=== PATIENT | female | born 1970 | race Caucasian/White ===

== ENCOUNTER 2017-10-08 20:18 | Inpatient (IN) | payer SELFPAY ==
[~2017-10-08] VITALS: Ht 167.6 cm; Wt 110.2 kg
--- NOTE | 2017-10-08 20:25 | Emergency Room Report ---
History of Present Illness General Chief Complaint: To Be Triaged Source: Patient Present Illness HPI Patient presents with complaints of shortness of breath and wheezing also reports chest tightness and left upper chest pain with radiation to the left arm This started just prior to arrival Denies any vomiting or diarrhea denies any back or flank pain Denies any pleurisy Pain as a heaviness as well 3 out of 10 Allergies: Coded Allergies: No Known Allergies (Unverified , 10/08/17) Patient History Past Medical History: see triage record Pertinent Family History: none Reviewed Nursing Documentation: PMH: Agreed; PSxH: Agreed Review of Systems All Other Systems: negative except mentioned in HPI Physical Exam Sp02 EP Interpretation: reviewed, normal - 99% on room air which is normal General Appearance: well appearing, no apparent distress Head: normocephalic, atraumatic Eyes: bilateral eye PERRL, bilateral eye EOMI ENT: hearing grossly normal, normal pharynx, TMs + canals normal, uvula midline Neck: full range of motion, supple, no meningismus, no bony tend Respiratory: no respiratory distress, no retraction, no accessory muscle use, wheezing - Bilaterally Cardiovascular #1: normal peripheral pulses, regular rate, rhythm, no edema, no gallop, no JVD, no murmur Gastrointestinal: normal bowel sounds, non tender, soft, no mass, no organomegaly, non-distended, no guarding, no hernia, no pulsatile mass, no rebound Genitourinary: no CVA tenderness Musculoskeletal: normal inspection Neurologic: oriented x3, responsive, instrument tester III-XII nml as tested, motor strength/ tone normal, sensory intact Psychiatric: mood/affect normal Skin: normal color, no rash, warm/dry, palpation normal Lymphatic: normal inspection, no adenopathy Medical Decision Making Diagnostic Impression: Primary Impression: ACS (acute coronary syndrome) ER Course Patient is a fairly complex patient with multiple differential to consideration including but not limited to cardiac cardiopulmonary and vascular emergencies Patient's baseline blood work are appropriate Given the patient's description of pain location Consideration for ACS is made and patient admitted for further care Labs Test 10/08/17 20:30 10/08/17 20:33 10/08/17 20:39 10/09/17 05:27 White Blood Count 10.9 K/UL (4.8-10.8) 9.7 K/UL (4.8-10.8) Red Blood Count 4.88 M/UL (4.20-5.40) 4.49 M/UL (4.20-5.40) Hemoglobin 12.2 G/DL (12.0-16.0) 11.0 G/DL (12.0-16.0) Hematocrit 38.2 % (37.0-47.0) 35.7 % (37.0-47.0) Mean Corpuscular Volume 78 FL (80-99) 80 FL (80-99) Mean Corpuscular Hemoglobin 25.0 PG (27.0-31.0) 24.6 PG (27.0-31.0) Mean Corpuscular Hemoglobin Concent 31.8 G/DL (32.0-36.0) 30.8 G/DL (32.0-36.0) Red Cell Distribution Width 14.9 % (11.6-14.8) 14.7 % (11.6-14.8) Platelet Count 212 K/UL (150-450) 211 K/UL (150-450) Mean Platelet Volume 7.3 FL (6.5-10.1) 8.0 FL (6.5-10.1) Neutrophils (%) (Auto) 59.1 % (45.0-75.0) 53.8 % (45.0-75.0) Lymphocytes (%) (Auto) 32.6 % (20.0-45.0) 37.5 % (20.0-45.0) Monocytes (%) (Auto) 5.4 % (1.0-10.0) 5.8 % (1.0-10.0) Eosinophils (%) (Auto) 1.9 % (0.0-3.0) 1.9 % (0.0-3.0) Basophils (%) (Auto) 1.1 % (0.0-2.0) 1.0 % (0.0-2.0) Urine Opiates Screen Negative (NEGATIVE) Urine Barbiturates Screen Negative (NEGATIVE) Phencyclidine (PCP) Screen Negative (NEGATIVE) Urine Amphetamines Screen Negative (NEGATIVE) Urine Benzodiazepines Screen Negative (NEGATIVE) Urine Cocaine Screen Negative (NEGATIVE) Urine Marijuana (THC) Screen Negative (NEGATIVE) D-Dimer 0.19 mg/L FEU (0.00-0.49) Sodium Level 141 MMOL/L (136-145) Potassium Level 3.9 MMOL/L (3.5-5.1) Chloride Level 105 MMOL/L (98-107) Carbon Dioxide Level 26 MMOL/L (21-32) Anion Gap 10 mmol/L (5-15) Blood Urea Nitrogen 15 mg/dL (7-18) Creatinine 0.8 MG/DL (0.55-1.30) Estimat Glomerular Filtration Rate > 60 mL/min (>60) Glucose Level 127 MG/DL (74-106) Calcium Level 8.6 MG/DL (8.5-10.1) Total Bilirubin 0.2 MG/DL (0.2-1.0) Aspartate Amino Transf (AST/SGOT) 12 U/L (15-37) Alanine Aminotransferase (ALT/SGPT) 24 U/L (12-78) Alkaline Phosphatase 100 U/L (46-116) Total Creatine Kinase 98 U/L (26-308) Creatine Kinase MB 1.2 NG/ML (0.0-3.6) Creatine Kinase MB Relative Index 1.2 Troponin I 0.000 ng/mL (0.000-0.056) 0.003 ng/mL (0.000-0.056) Pro-B-Type Natriuretic Peptide 182 pg/mL (0-125) Total Protein 7.3 G/DL (6.4-8.2) Albumin 3.5 G/DL (3.4-5.0) Globulin 3.8 g/dL Albumin/Globulin Ratio 0.9 (1.0-2.7) Lipase 199 U/L (73-393) Prothrombin Time 10.3 SEC (9.30-11.50) Prothromb Time International Ratio 1.0 (0.9-1.1) Activated Partial Thromboplast Time 28 SEC (23-33) C-Reactive Protein, Quantitative 0.9 mg/dL (0.00-0.90) Triglycerides Level 136 MG/DL (30-150) Cholesterol Level 156 MG/DL (< 200) LDL Cholesterol 108 mg/dL (<100) HDL Cholesterol 42 MG/DL (40-60) Cholesterol/HDL Ratio 3.7 (3.3-4.4) Thyroid Stimulating Hormone (TSH) 2.937 uiU/mL (0.358-3.740) EKG Diagnostic Results Rate: normal Rhythm: NSR ST Segments: no acute changes Rhythm Strip Diag. Results EP Interpretation: yes Rate: 77 Rhythm: NSR, no PVC's, no ectopy Chest X-Ray Diagnostic Results Chest X-Ray Diagnostic Results : Chest X-Ray Ordered: Yes # of Views/Limited/Complete: 1 View Indication: Chest Pain EP Interpretation: Yes Interpretation: no consolidation, no effusion, no pneumothorax Impression: No acute disease Electronically Signed by: Alvin Powell DO Status: improved Disposition: ADMITTED INPATIENT Condition: Serious Alvin Powell DO Oct 08, 2017 20:25
[2017-10-08] MEDS ORDERED: Ipratropium 0.02% Inh Soln 2.5ml UD HHN ONE (20:30)
[2017-10-08 20:48] VITALS: BP 111/62
[2017-10-08 20:51] LABS: BASOPHILS % (AUTO) 1.1 % (0.0-2.0); EOSINOPHILS % (AUTO) 1.9 % (0.0-3.0); HEMATOCRIT 38.2 % (37.0-47.0); HEMOGLOBIN 12.2 G/DL (12.0-16.0); LYMPHOCYTES % (AUTO) 32.6 % (20.0-45.0); MEAN CORPUSCULAR VOLUME 78 FL (80-99); MONOCYTES % (AUTO) 5.4 % (1.0-10.0); NEUTROPHILS % (AUTO) 59.1 % (45.0-75.0); PLATELET COUNT 212 K/UL (150-450); RED BLOOD COUNT 4.88 M/UL (4.20-5.40); RED CELL DISTRIBUTION WIDTH 14.9 % (11.6-14.8); WHITE BLOOD COUNT 10.9 K/UL (4.8-10.8)
[2017-10-08 21:01] LABS: ANION GAP 10 mmol/L (5-15); BLOOD UREA NITROGEN 15 mg/dL (7-18); CALCIUM 8.6 MG/DL (8.5-10.1); CARBON DIOXIDE 26 MMOL/L (21-32); CHLORIDE 105 MMOL/L (98-107); CREATININE 0.8 MG/DL (0.55-1.30); POTASSIUM 3.9 MMOL/L (3.5-5.1); SODIUM 141 MMOL/L (136-145)
--- NOTE | 2017-10-08 21:09 | Diagnostic Imaging Report ---
EXAM: XR Chest, 1 View CLINICAL HISTORY: CP TECHNIQUE: Frontal view of the chest. COMPARISON: No relevant prior studies available. FINDINGS: Lungs: Unremarkable. No consolidation. Pleural space: Unremarkable. No pneumothorax. Heart: Unremarkable. No cardiomegaly. Mediastinum: Unremarkable. Bones/joints: Unremarkable. IMPRESSION: Normal chest x-ray.
[2017-10-08 21:14] LABS: ALANINE AMINOTRANSFERASE 24 U/L (12-78); ALBUMIN 3.5 G/DL (3.4-5.0); ALBUMIN/GLOBULIN RATIO 0.9 (1.0-2.7); ALKALINE PHOSPHATASE 100 U/L (46-116); ASPARTATE AMINO TRANSFERASE 12 U/L (15-37); BILIRUBIN,TOTAL 0.2 MG/DL (0.2-1.0); CKMB 1.2 NG/ML (0.0-3.6); CREATINE KINASE 98 U/L (26-308)
[2017-10-08] MEDS: Albuterol ud Inhalation HHN SCH ×3 (21:44→22:05)
[2017-10-08] MEDS ORDERED: Enalaprilat 2.5mg/2ml Inj IV PRN (21:45)
[2017-10-08] MEDS ORDERED: Miralax 17gm pkt ORAL PRN (21:45)
[2017-10-08] MEDS ORDERED: Ketorolac 30mg Inj IV PRN (21:45)
[2017-10-08] MEDS ORDERED: Albuterol/Ipratropium 3ml neb HHN PRN (21:45)
[2017-10-08] MEDS ORDERED: dilTIAZem HCl 25mg/5ml Inj IV PRN (21:45)
[2017-10-08] MEDS ORDERED: Morphine Sulfate 2mg/ml Inj IVP PRN (21:45)
[2017-10-08] MEDS ORDERED: Nitroglycerin Subl 0.4mg tab SL PRN (21:45)
[2017-10-08] MEDS ORDERED: LORazepam Inj 2mg/ml 1ml ONE (22:36)
[2017-10-08 23:18] VITALS: BP 117/59
--- NOTE | 2017-10-08 23:22 | Emergency Room Report ---
Physical Exam Vital Signs Date Time Temp Pulse Resp B/P (MAP) Pulse Ox O2 Delivery O2 Flow Rate FiO2 10/08/17 20:22 97.8 86 20 110/70 96 Nasal Cannula 97.9 10/08/17 21:45 2.0 28 Medical Decision Making Diagnostic Impression: Primary Impression: ACS (acute coronary syndrome) ER Course While in ED waiting to go upstairs patient had a witnessed (by me) generalized tonic-clonic sz about 30 seconds. Self-d/c. I gave Ativan 1 mg. IV and ordered noncontrast head CT and alerted Dr. Curiel. Friend with patient does not think she had sz in the past. Last Vital Signs Date Time Temp Pulse Resp B/P (MAP) Pulse Ox O2 Delivery O2 Flow Rate FiO2 10/08/17 23:18 98.8 20 117/59 100 Nasal Cannula 2.0 28 98.8 10/08/17 22:13 97 Referrals: NOT CHOSEN MOSHE/,REFERRING (PCP) Sarath Tejeda M.D. Oct 08, 2017 23:22
[2017-10-08] MEDS ORDERED: LORazepam Inj 2mg/ml 1ml IV ONE (23:30)
[2017-10-09] VITALS: BP 124/68
--- NOTE | 2017-10-09 00:31 | Diagnostic Imaging Report ---
EXAM: CT Head Without Intravenous Contrast CLINICAL HISTORY: SZ TECHNIQUE: Axial computed tomography images of the head/brain without intravenous contrast. CTDI is 0.15, 70.38 mGy and DLP is 1499 mGy-cm. One or more of the following dose reduction techniques were used: automated exposure control, adjustment of the mA and/or kV according to patient size, use of iterative reconstruction technique. COMPARISON: No relevant prior studies available. FINDINGS: Brain: No acute infarct, hemorrhage, mass or edema. No significant white matter disease. Ventricles: Unremarkable. No ventriculomegaly. Bones/joints: Unremarkable. No acute fracture. Soft tissues: Unremarkable. Sinuses: Minimal mucosal thickening of the paranasal sinuses. Mastoid air cells: Unremarkable as visualized. No mastoid effusion. IMPRESSION: No acute findings.
[2017-10-09 04:00] VITALS: BP 112/70
[2017-10-09 07:13] LABS: EOSINOPHILS % (AUTO) 1.9 % (0.0-3.0); HEMATOCRIT 35.7 % (37.0-47.0); LYMPHOCYTES % (AUTO) 37.5 % (20.0-45.0); MEAN CORPUSCULAR VOLUME 80 FL (80-99); MONOCYTES % (AUTO) 5.8 % (1.0-10.0); NEUTROPHILS % (AUTO) 53.8 % (45.0-75.0); PLATELET COUNT 211 K/UL (150-450); RED BLOOD COUNT 4.49 M/UL (4.20-5.40); RED CELL DISTRIBUTION WIDTH 14.7 % (11.6-14.8); WHITE BLOOD COUNT 9.7 K/UL (4.8-10.8)
[2017-10-09 07:43] LABS: CHOLESTEROL 156 MG/DL (< 200); HDL CHOLESTEROL 42 MG/DL (40-60); TRIGLYCERIDES 136 MG/DL (30-150)
[2017-10-09 08:00] VITALS: BP 145/89
[2017-10-09] MEDS ORDERED: Heparin 5000 units/ml inj SUBQ SCH (09:00)
[2017-10-09] MEDS ORDERED: Aspirin Baby 81mg ORAL SCH (09:00)
[2017-10-09 12:00] VITALS: BP 134/71
[2017-10-09] MEDS ORDERED: FLONASE ALLERG9.9 ML NS (12:13)
[2017-10-09] MEDS ORDERED: LANSOPRAZOLE30 MG ORAL (12:13)
[2017-10-09] MEDS ORDERED: Lexiscan 0.4mg/5ml syringe IV SCH (13:45)
--- NOTE | 2017-10-09 13:53 | History & Physical ---
History and Physical History & Physicial Dictated for Int Med-Dr Curiel no. [id number]. Kvng Wren MD Oct 09, 2017 13:53
--- NOTE | 2017-10-09 14:14 | Cardiology Report ---
APPROVED REPORT EXAM: Two-dimensional and M-mode echocardiogram with Doppler and color Doppler. INDICATION LV FUNCTION M-Mode DIMENSIONS IVSd1.1 (0.7-1.1cm)Left Atrium (MM)3.7 (1.6-4.0cm) LVDd4.2 (3.5-5.6cm)Aortic Root3.2 (2.0-3.7cm) PWd1.2 (0.7-1.1cm)Aortic Cusp Exc.2.2 (1.5-2.0cm) IVSs1.1 cm LVDs3.0 (2.5-4.0cm) PWs1.6 cm Technically difficult study due to poor acoustical windows. Normal left ventricular chamber size, systolic function and wall motion to extent visualized. Left ventricular ejection fraction estimated to be 65 %. No evidence of left ventricular hypertrophy . No evidence of pericardial effusion. All other chamber sizes are within normal limits. Focal aortic valve sclerosis with adequate cusp excursion. Thickened mitral valve leaflets with normal excursion. Mitral annulus and aortic root calcification. Pulmonic valve not well visualized. Normal tricuspid valve structure. IVC at normal size with physiologic collapse. A color flow and spectral Doppler study was performed and revealed: No aortic regurgitation. Trace mitral regurgitation. Normal left ventricular diastolic function . Mild tricuspid regurgitation. Tricuspid systolic velocities suggests peak right ventricular systolic pressure of35 mmHg.
[2017-10-09 16:00] VITALS: BP 129/75
--- NOTE | 2017-10-09 16:45 | History and Physical Report ---
DATE OF ADMISSION: 10/08/2017 CHIEF COMPLAINT: The patient is a 47-year-old white female, presents with chief complaint of chest pain and shortness of breath. HISTORY OF PRESENT ILLNESS: The patient is visiting from [facility]. The patient states she is here. 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 The patient has a history of asthma. The patient was walking yesterday. The patient began to experience chest pain. Chest pain radiates to the left arm. The patient also had wheezing and cough. The patient has nitroglycerin and took one nitroglycerin tablet sublingually. Chest pain was not relieved. The patient presented to [place] emergency room. The patient is admitted with chest pain to rule out acute coronary syndrome and wheezing to rule out acute exacerbation of asthma. REVIEW OF SYSTEMS: CONSTITUTIONAL: The patient denies weight loss or weight gain. The patient denies fevers or chills. HEENT: The patient denies ear or throat pain. The patient denies headache. CARDIOVASCULAR: The patient complains of chest pain as above. The patient denies palpitations. CHEST: The patient complains of shortness of breath as above. ABDOMEN: The patient denies nausea, vomiting, diarrhea, or constipation. GENITOURINARY: The patient denies dysuria or increased frequency of urination. NEUROMUSCULAR: The patient denies seizures or generalized weakness. PAST MEDICAL HISTORY: Significant for asthma and hypertension, however the patient has not been on any medication. PAST SURGICAL HISTORY: Significant for bilateral eye surgery. CURRENT MEDICATIONS: Flonase two sprays in each nostril daily and Prevacid 30 mg p.o. daily. ALLERGIES: No known drug allergies. SOCIAL HISTORY: The patient is single. 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 The patient denies tobacco use. The patient admits to occasional alcohol use. PHYSICAL EXAMINATION: VITAL SIGNS: Temperature 98.2, respirations 16, pulse 89 to 93, and blood pressure 112/87. GENERAL: This is a well-developed and well-nourished white female, in no apparent distress. HEENT: Pupils equal and responsive to light and accommodation. Extraocular movements are intact. NECK: Supple without lymphadenopathy. CHEST: Lungs are clear to auscultation bilaterally without wheezes or rales. CARDIOVASCULAR: Regular rate. S1, S2 normal without murmurs, rubs, or gallops. ABDOMEN: Soft, nontender, and nondistended. Positive bowel sounds. No evidence of hepatosplenomegaly. Currently, no rebound or guarding noted. EXTREMITIES: Negative for clubbing, cyanosis, or edema. RECTAL: Refused. GENITAL: Refused. NEUROLOGIC: Cranial nerves II through XII are grossly intact without focal deficits. Motor strength is 5/5 bilaterally. Deep tendon reflexes are 2+ plantar. LABORATORY STUDIES: WBC 10.9, hemoglobin 12.2, hematocrit 30.2, and platelets 212,000. Sodium 141, potassium 3.9, chloride 105, CO2 is 26, BUN is 15, creatinine 0.8, glucose 127. Troponin 0.0. BNP 182. Chest x-ray was reported as no acute disease. A CT scan of the brain was reported as no acute findings. ASSESSMENT: This is a 47-year-old white female. 1. Chest pain. 2. Shortness of breath. 3. Wheezing. 4. Asthma. TREATMENT: 1. Chest pain. A Cardiology consultation with Dr. Josue Bravo. The patient has been scheduled for a Cardiolite stress test. We will follow recommendation of Cardiology. Serial troponin levels will be performed. 2. Shortness of breath. This may be secondary to asthma exacerbation versus chest pain as above. A Pulmonary consultation obtained with Dr. Alejandra Riley. 3. Wheezing/asthma. The patient has been started empirically on DuoNebs q. 4 h. p.r.n. Kvng Wren M.D. DR: DEMETRIUS/AXEL JOB#: [id number] CC:
[2017-10-09] MEDS ORDERED: Flonase Nasal Inhaler 16gm NASAL SCH (18:00)
--- NOTE | 2017-10-09 21:45 | Consultation ---
DATE OF CONSULTATION: 10/09/2017 CARDIOLOGY CONSULTATION This is a cardiology consult being done as coverage for Dr. Bravo. REASON FOR CONSULT: Chest pain. HISTORY OF PRESENT ILLNESS: The patient is a 47-year-old woman who developed chest pain radiating to her left arm, laxity, and waning yesterday afternoon. Symptoms began while she was sitting in a car. She took the tablets under her tongue. She does not know the name of the medication, but did not have improvement in her symptoms and therefore presented to the emergency room. She is from [facility], but currently living in [place] where she works as a [employer]. The family that she works for is visiting the [place] for the past month. She presented to the emergency room where her initial troponin was negative, BNP was 182, and EKG showed no acute ST-segment changes. She was admitted for further treatment. She has a history of hypertension in the past, but states that blood pressures have been normal, off medications recently. She has no history of diabetes, hyperlipidemia, or tobacco use. FAMILY HISTORY: She does have family history of coronary artery disease with her father having had bypass surgery in his early 50s. Mother with coronary stent in her 60s. MEDICATIONS: Currently Protonix 40 mg daily, Flonase nasal spray twice daily, aspirin 162 mg daily, albuterol and ipratropium nebulizer p.r.n., and Tylenol as needed. Medications at home none. ALLERGIES: No known drug allergies. PAST MEDICAL HISTORY: As noted above. SOCIAL HISTORY: No history of tobacco, alcohol, or drug use. PHYSICAL EXAMINATION: VITAL SIGNS: Blood pressure is 134/71, pulse 83 and regular, respirations 20, and afebrile. GENERAL: Alert, well-developed, obese white female, in no acute distress. HEENT: Normocephalic and atraumatic. Pupils are equal, round, and reactive to light. Sclerae anicteric. Oral mucosa is moist. NECK: Supple. There is no jugular venous distention. No carotid bruits. No thyromegaly. LUNGS: Clear to auscultation bilaterally. HEART: Regular S1 and S2. No murmurs, rubs, S3, or S4. ABDOMEN: Soft and nontender. No palpable mass. EXTREMITIES: No cyanosis, clubbing, or edema. LABORATORY AND DIAGNOSTIC DATA: Troponin 0 on admission, repeat 0.003. Sodium 141, potassium 3.9, chloride 105, bicarbonate 26, BUN 15, and creatinine 0.8, and glucose 127. Natriuretic peptide 182. TSH 2.9. Hemoglobin 11, hematocrit 35, white blood count 9700. D-dimer 0.19. EKG shows sinus rhythm, rate of 90 beats per minute, axis +70 degrees, left atrial enlargement. No ST-segment changes. Chest x-ray shows no infiltrates or effusions. Echo, preliminary report, technically difficult study. Normal LVEF and no significant valve lesions. PLAN AND ASSESSMENT: The patient is a 47-year-old woman who was admitted with chest pain radiating to her left arm, possible angina. She appears to be ruling out for myocardial infarction with negative cardiac enzymes and EKGs. I would favor stress nuclear study to rule out ischemia. Recommend checking lipid panel and cardiac risk factor modification. Dr. Bravo will continue to follow the patient starting tomorrow and will follow up the results of her stress nuclear study. Bridgette Mar JOB#: [id number] CC:
--- NOTE | 2017-10-10 19:33 | Cardiology Report ---
APPROVED REPORT EKG Measurement Heart [id number] Normal sinus rhythm Possible Left atrial enlargement Borderline ECG
--- NOTE | 2017-10-11 12:10 | Discharge Summary ---
Discharge Summary Discharge Summary _ DATE OF ADMISSION: 10/08/2017 DATE OF DISCHARGE: 10/09/2017 REASON FOR ADMISSION: 47 years old female with past medical history of asthma, presented with chief complaint of chest pain and shortness of breath. Patient was visiting from [place]. 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 Upon evaluation in emergency room , patient reported having chest pain with radiation to left arm. Patient also reported wheezing and productive cough with clear sputum. Patient took nitroglycerin at home without relief of pain. Patient presented to emergency room for further management. While waiting for transfer to the floor patient had episode of generalized tonic -clonic seizure. CT of the head revealed no acute intracranial pathology. Chest x-ray revealed no acute cardiopulmonary pathology. Urine toxicology screen was negative. Troponin was negative. EKG revealed sinus rhythm, no acute ischemic changes . proBNP 182. Patient admitted for further management with diagnoses of chest pain, rule out acute coronary syndrome ,shortness of breath, asthma ,possible exacerbation with wheezing , episode of generalized tonic-clonic seizures. CONSULTANTS: sound recording technician Dr. Rolbes [facility]SE: Patient admitted. Supplemental oxygen provided as needed to keep pulse oximetry above 92% . Pulmonary toilet started on as needed basis. Pulmonology consult was requested. Chest x-ray as mentioned above, revealed no acute cardiopulmonary pathology. Hand held nebulizing treatment with bronchodilator was continued. Antitussive provided as needed. DVT prophylaxis provided. Troponin 2 were negative. EKG revealed no acute ischemic changes. Patient was ruled out for acute SC. Echocardiogram revealed preserved ejection fraction. Lipid panel revealed elevated LDL of 108. Patient was counseled on low-fat low-cholesterol cardiac diet. Nitroglycerin was on board as needed for pain Compo Conveyor Operator seen and evaluated patient and recommended stress test. GI prophylaxis provided Bowel regimen instituted . Supportive care provided . Pulse oximetry was stable on room air. Seizure precautions were maintained. CT of the head as mentioned above was negative for any acute intracranial pathology. Patient was counseled on factors, that could precipitate seizure ( this was first episode). No antiepileptic medication given this was the first and the only one episode of seizure. The patient decided to sign AGAINST MEDICAL ADVICE. The risks and consequences of signing AGAINST MEDICAL ADVICE were discussed with patient in detail. Patient verbalized understanding, nevertheless signed AMA form and left. FINAL DIAGNOSES: Chest pain ( acute coronary syndrome was ruled out) Asthma, probably asthma exacerbation Episode of generalized tonic-clonic seizure Shortness of breath I have been assigned to dictate discharge summary for this account. I was not involved in the patient's management. Laura Khan NP Oct 11, 2017 12:10
== END 2017-10-09 19:10 | disposition left against medical advice (07) | DRG 203 ==
LOC: EMR 21:17 → EDBEDREQ 22:13 → 2E 22:20
DX: J45.901 Unspecified asthma with (acute) exacerbation (principal); R07.9 Chest pain, unspecified; R06.02 Shortness of breath; Z82.49 Family history of ischemic heart disease and other diseases of the circulatory system; I10 Essential (primary) hypertension; R56.9 Unspecified convulsions
CPT/HCPCS: 36415; 70450; 71045; 80053; 80061; 80307; 82550; 82553; 83690; 83880; 84443; 84484; 85025; 85379; 85610; 85730; 86140; 93005; 93306; 94640; 94664; J2785